=== PATIENT | female | born 1975 | race Caucasian/White ===

== ENCOUNTER 2016-06-10 09:59 | Day surgery (SDC) | payer BC ==
[2016-06-05 09:58] VITALS: BMI 30.2
[~2016-06-10 09:59] MED LIST: LACTATED RINGERS 1,000 ML IV SCH; LIDOCAINE 1% 20 ML VIAL (10MG/ML) FOR IV START INTRADERMA PRN
[2016-06-10 11:08] VITALS: RESP 16; TEMP 98
[2016-06-10] MEDS ORDERED: PROPOFOL 10 MG/ML 20 ML VIAL IV ONE (11:37)
[2016-06-10] MEDS ORDERED: LIDOCAINE 1% INJ 10MG/ML (20 ML MDV) ONE (11:37)
--- NOTE | 2016-06-10 11:42 | P.GSHP ---
History of Present Illness H&P Date: 06/10/16 Chief Complaint: Change in bowel habits Patient here today for colonoscopy. She has had complaints of recent diarrhea and change in bowel habits. She has not had one previously. No family history of inflammatory bowel disease. Past Medical History Past Medical History: No Reported History Additional Past Medical History / Comment(s): HX TACHYCARDIA. HAS BEEN HAVING BOWEL ISSUES RECENTLY PLUS FAMILY HX OF COLORECTAL CANCER History of Any Multi-Drug Resistant Organisms: None Reported Past Surgical History: Adenoidectomy, Cholecystectomy, Orthopedic Surgery, Tonsillectomy Additional Past Surgical History / Comment(s): Left shoulder and right knee surgery. IUD. UPPP FOR SLEEP APNEA. SINUS SX Past Anesthesia/Blood Transfusion Reactions: No Reported Reaction Past Psychological History: No Psychological Hx Reported Smoking Status: Never smoker Past Alcohol Use History: Occasional Past Drug Use History: None Reported - Past Family History Father Family Medical History: Cancer Mother Family Medical History: Cancer Medications and Allergies Home Medications Medication Instructions Recorded Confirmed Type Cyclobenzaprine [Flexeril] 10 mg PO DAILY 06/05/16 06/10/16 History Ibuprofen [Motrin] 800 mg PO Q6HR PRN 06/05/16 06/05/16 History QUEtiapine FUMARATE [SEROquel XR] 150 mg PO HS 06/05/16 06/10/16 History Allergies Allergy/AdvReac Type Severity Reaction Status Date / Time adhesive AdvReac Rash/Hives Verified 06/05/16 09:51 azithromycin AdvReac Rash/Hives Verified 06/05/16 09:51 [From Zithromax Z-Gabriel] Penicillins AdvReac Rash/Hives Verified 06/05/16 09:51 prednisone AdvReac Rash/Hives Verified 06/05/16 09:51 Surgical - Exam Vital Signs Temp Pulse Resp BP Pulse Ox 98 F 119 H 16 149/91 99 06/10/16 11:07 06/10/16 11:07 06/10/16 11:07 06/10/16 11:07 06/10/16 11:07 Physical exam: General: Well-developed, well-nourished HEENT: Normocephalic, sclerae nonicteric Abdomen: Nontender, nondistended Extremities: No edema Neuro: Alert and oriented Assessment and Plan (1) Change in bowel habits Narrative/Plan: Will proceed with colonoscopy at this time. Status: Acute
--- NOTE | 2016-06-10 11:52 | P.PCN ---
Date of Procedure: 06/10/16 Procedure(s) Performed: PREOPERATIVE DIAGNOSIS: Change in bowel habits POSTOPERATIVE DIAGNOSIS: Normal exam PROCEDURE: Colonoscopy ANESTHESIA: MAC SURGEON: Roger Rooney M.D. SPECIMENS: None ENDOSCOPIC PROCEDURE: The patient was placed on the endoscopy table in the left decubitus position. The Olympus colonoscope was inserted into the anus and passed under direct visualization to the base of the cecum. The appendiceal orifice was visualized. From that point the scope was slowly withdrawn inspecting all surfaces carefully. There were no neoplastic inflammatory or polypoid lesions throughout the cecum, ascending, transverse, descending, sigmoid and rectum. There was no diverticulosis noted. Digital rectal examination was normal. The patient was taken to the recovery room in stable condition per anesthesia guidelines. RECOMMENDATIONS: Increase fiber. Follow-up colonoscopy age 50.
[2016-06-10 13:04] VITALS: BP 114/82; PULSE 99
== END 2016-06-10 12:55 | disposition home or self-care (01) ==
LOC: ORWHC2ENDO 09:59
PROVIDERS: ATTEND Surgery
DX: R19.4 Change in bowel habit (principal); Z80.0 Family history of malignant neoplasm of digestive organs; R00.0 Tachycardia, unspecified; Z79.899 Other long term (current) drug therapy; Z88.1 Allergy status to other antibiotic agents; Z88.0 Allergy status to penicillin; Z88.8 Allergy status to other drugs, medicaments and biological substances; Z91.09 Other allergy status, other than to drugs and biological substances
CPT/HCPCS: 81025; 45378; J2001; J2704

== ENCOUNTER → 2016-11-25 | Outpatient (CLI) | payer BC ==
--- NOTE | 2016-11-25 17:24 | CT ---
EXAMINATION TYPE: CT soft tissue neck w con DATE OF EXAM: 11/25/2016 COMPARISON: NONE HISTORY: Patient complains of enlarged precancerous thyroid. CT DLP: 677 mGycm CONTRAST: Patient injected with 100 mL of Omnipaque 300. TECHNIQUE: Axial images at 3 mm thick sections. Reconstructed images in the coronal plane and sagitt al plane are reviewed. FINDINGS: Limited CT sections are obtained the lung apices. The lung apices appear clear. CT neck: There is fullness through the right fossa of Rosenmuller. Direct visualization of the health spa manager ior nasal passages recommended. Parapharyngeal spaces are normal. Order Filler spaces are normal. Parotid glands appear normal and symmetrical. Submandibular glands, are normal. Parapharyngeal spac es are normal. Small left submandibular lymph node is present. Couple of small submental lymph nodes are present. Suspicious adenopathy is not identified. Scattered small bilateral posterior triangle l ymph nodes are present. Largest lymph node on the right measures 0.7 cm. Series 3 image 36. Small jug ulodigastric lymph nodes are present, not enlarged by CT criteria. The hypopharynx appears within normal limits. Vocal cord level appear symmetrical. Subglottic airway appears normal. There is a 0.6 cm hypodensity within the posterior right lobe thyroid. Thyroid appears somewhat heter ogenous. Thyroid ultrasound could be performed. Consider goiter within the differential. Osseous structures are normal. Mucosal thickening is through ethmoid air cells and left maxillary sinus. No suspicious air-fluid lev els are evident. Left mastoid air cells are underpneumatized. The right mastoid air cells appear unre markable. IMPRESSIONS: 1. Scattered small lymphadenopathy discussed above. Suspicious enlarged nodes are not identified. 2. Thyromegaly with a heterogenous appearance. Posterior hypodense nodule is present on the right. Il l-defined mass within the more anterior thyroid is not excluded. Correlation with ultrasound is recom mended.
== END | disposition home or self-care (01) ==
LOC: RADCTMAIN 15:47
PROVIDERS: ATTEND Surgery
DX: E04.1 Nontoxic single thyroid nodule (principal); R59.0 Localized enlarged lymph nodes
CPT/HCPCS: 70491; Q9967

== ENCOUNTER → 2016-12-28 | Outpatient (CLI) | payer BC | END | disposition home or self-care (01) | LOC: LABWHC1 16:00 | PROVIDERS: ATTEND Internal Medicine Endocrinology, Diabetes & Metabolism | DX: C73 Malignant neoplasm of thyroid gland (principal) | CPT/HCPCS: 36415; 84432; 86800 ==

== ENCOUNTER → 2017-09-28 | Outpatient (CLI) | payer BC ==
[2017-09-28 15:16] LABS: Amorphous Sediment,Urine Rare /hpf; Appearance,Urine Clear (Clear); Bilirubin,Urine Negative (Negative); Blood,Urine Trace (Negative); Color,Urine Light Yellow; Glucose,Urine (UA) Negative (Negative); Ketones,Urine Negative (Negative); Leukocyte Esterase,Urine Negative (Negative); Mucus,Urine Rare /hpf; Nitrite,Urine Negative (Negative); Protein,Urine 1+ (Negative); RBC,Urine <1 /hpf (0-5); Specific Gravity,Urine 1.008 (1.001-1.035); Squamous Epithelial Cell,Urine <1 /hpf (0-4); Urobilinogen,Urine <2.0 mg/dL (<2.0); WBC,Urine <1 /hpf (0-5)
[2017-09-28 15:21] LABS: HCT 47.2 % (34.0-46.0); HGB 15.4 gm/dL (11.4-16.0); MCH 29.4 pg (25.0-35.0); MCHC 32.6 g/dL (31.0-37.0); MCV 90.4 fL (80.0-100.0); Mean Platelet Volume 8.7; Platelet Count 138 k/uL (150-450); RBC 5.22 m/uL (3.80-5.40); RDW 14.6 % (11.5-15.5); WBC 8.5 k/uL (3.8-10.6)
[2017-09-28 15:31] LABS: Calcium 9.5 mg/dL (8.4-10.2); Potassium 3.4 mmol/L (3.5-5.1)
== END | disposition home or self-care (01) ==
LOC: LABWHC1 09:35
PROVIDERS: ATTEND Internal Medicine Endocrinology, Diabetes & Metabolism
DX: C73 Malignant neoplasm of thyroid gland (principal); I10 Essential (primary) hypertension
CPT/HCPCS: 36415; 80048; 81001; 84432; 84443; 85027; 86800

== ENCOUNTER → 2017-12-03 | Outpatient (CLI) | payer BC ==
[2017-12-03 08:53] LABS: Basophils # (A) 0.1 k/uL (0-0.2); Basophils % (A) 1 %; Eosinophils # (A) 0.2 k/uL (0-0.7); Eosinophils % (A) 3 %; HCT 43.6 % (34.0-46.0); HGB 14.2 gm/dL (11.4-16.0); Lymphocytes # (A) 2.3 k/uL (1.0-4.8); Lymphocytes % (A) 28 %; MCH 30.6 pg (25.0-35.0); MCHC 32.6 g/dL (31.0-37.0); Mean Platelet Volume 8.7; Monocytes # (A) 0.2 k/uL (0-1.0); Monocytes % (A) 3 %; Neutrophils # (A) 5.3 k/uL (1.3-7.7); Neutrophils % (A) 65 %; Platelet Count 251 k/uL (150-450); RBC 4.63 m/uL (3.80-5.40); RDW 13.4 % (11.5-15.5); WBC 8.2 k/uL (3.8-10.6)
[2017-12-03 17:04] LABS: Thyroid Peroxidase Antibodies 56.6 U/mL (0.0-60.0)
== END | disposition home or self-care (01) ==
LOC: LABWHC1 08:15
PROVIDERS: ATTEND Internal Medicine Sleep Medicine
DX: E03.9 Hypothyroidism, unspecified (principal)
CPT/HCPCS: 36415; 84439; 84443; 85025; 86376; 86800

== ENCOUNTER → 2018-03-11 | Outpatient (CLI) | payer BC ==
[2018-03-11 22:41] LABS: Thyroglobulin 1.01 ng/mL (1.60-59.90)
== END | disposition home or self-care (01) ==
LOC: LABWHC1 13:34
PROVIDERS: ATTEND Internal Medicine Endocrinology, Diabetes & Metabolism
DX: C73 Malignant neoplasm of thyroid gland (principal)
CPT/HCPCS: 36415; 84432; 84443; 86800

== ENCOUNTER → 2018-03-28 | Outpatient (CLI) | payer BC ==
--- NOTE | 2018-03-29 07:51 | US ---
EXAMINATION TYPE: US thyroid st tissue head/neck DATE OF EXAM: 03/28/2018 COMPARISON: US , CT CLINICAL HISTORY: C73 malignant neoplasm of thyroid gland; total thyroidectomy 2016 US: no residual thyroid tissue is observed. Bilateral neck scanned: no evidence of lymphadenopathy. IMPRESSION: Status post total thyroidectomy with no residual thyroid tissue or adenopathy seen in the thyroidecto my bed.
== END ==
LOC: RADUSWWP 16:43
PROVIDERS: ATTEND Internal Medicine Endocrinology, Diabetes & Metabolism
DX: E89.0 Postprocedural hypothyroidism (principal); Z90.89 Acquired absence of other organs
CPT/HCPCS: 76536

== ENCOUNTER → 2018-04-29 | Outpatient (CLI) | payer BC ==
[2018-04-29 15:02] LABS: Basophils # (A) 0.1 k/uL (0-0.2); Basophils % (A) 1 %; Eosinophils # (A) 0.2 k/uL (0-0.7); Eosinophils % (A) 1 %; HCT 50.9 % (34.0-46.0); HGB 16.1 gm/dL (11.4-16.0); Lymphocytes # (A) 2.4 k/uL (1.0-4.8); Lymphocytes % (A) 19 %; MCH 28.5 pg (25.0-35.0); MCHC 31.7 g/dL (31.0-37.0); Mean Platelet Volume 8.5; Monocytes # (A) 0.5 k/uL (0-1.0); Monocytes % (A) 4 %; Neutrophils # (A) 9.3 k/uL (1.3-7.7); Neutrophils % (A) 74 %; Platelet Count 324 k/uL (150-450); RBC 5.66 m/uL (3.80-5.40); RDW 13.9 % (11.5-15.5); WBC 12.7 k/uL (3.8-10.6)
[2018-04-29 19:49] LABS: Albumin 5.1 g/dL (3.80-4.90); Albumin/Globulin Ratio 1.96 (1.60-3.17); Anion Gap 8.8 mmol/L (4.00-12.00); Calcium 9.7 mg/dL (8.7-10.3); Carbon Dioxide 25.2 mmol/L (21.6-31.8); Globulin 2.6 g/dL (1.6-3.3); Potassium 4.5 mmol/L (3.5-5.5); Total Bilirubin 0.4 mg/dL (0.3-1.2); Total Protein 7.7 g/dL (6.2-8.2); Vitamin D 25 Hydroxy 14.2 ng/mL (30.0-100.0)
== END | disposition home or self-care (01) ==
LOC: LABWHC1 14:04
PROVIDERS: ATTEND Nurse Practitioner Acute Care
DX: E55.9 Vitamin D deficiency, unspecified (principal); G35 Multiple sclerosis; R25.1 Tremor, unspecified; R42 Dizziness and giddiness
CPT/HCPCS: 36415; 80053; 82306; 82607; 84207; 85025

== ENCOUNTER → 2020-06-14 | Outpatient (CLI) | payer BC ==
[2020-06-14 13:36] LABS: Albumin 4.1 g/dL (3.5-5.0); Calcium 9.4 mg/dL (8.4-10.2); Potassium 4.5 mmol/L (3.5-5.1); Total Bilirubin 0.3 mg/dL (0.2-1.3); Total Protein 6.7 g/dL (6.3-8.2)
[2020-06-14 13:44] LABS: Prothrombin Time 10.4 sec (9.0-12.0)
--- NOTE | 2020-06-14 14:50 | FL ---
EXAMINATION TYPE: FL barium swallow w video DATE OF EXAM: 06/14/2020 COMPARISON: NONE HISTORY: Dysphagia, multiple sclerosis TECHNIQUE: Fluoroscopy. FINDINGS: Fluoroscopic guidance was provided for the procedure performed in conjunction with the [facility] pathology department. Please see complete report forthcoming from the Speech Pathology departmen t. Various consistencies from thin liquid to solids were administered. Fluoroscopy time 50 seconds. Number of images: 0. No aspiration or penetration was evident. No significant pooling was observed in the vallecula. There was normal propulsion of the bolus. IMPRESSION: 1. Normal modified barium swallow.
== END | disposition home or self-care (01) ==
LOC: RADFLMAIN 11:02
PROVIDERS: ATTEND Psychiatry & Neurology Neurology
DX: R13.10 Dysphagia, unspecified (principal); G35 Multiple sclerosis
CPT/HCPCS: 36415; 74230; 80053; 82306; 82607; 84207; 85610

== ENCOUNTER → 2020-08-27 | Outpatient (CLI) | payer BC ==
[~2020-08-27] MED LIST changes: -LACTATED RINGERS 1,000 ML IV SCH; -LIDOCAINE 1% 20 ML VIAL (10MG/ML) FOR IV START INTRADERMA PRN; +REGADENOSON 0.4 MG/5 ML SYRINGE IV ONE
--- NOTE | 2020-08-27 13:21 | NM ---
EXAMINATION TYPE: NM stress lexiscan cardiolite DATE OF EXAM: 08/27/2020 COMPARISON: NONE HISTORY: R07.9, chest pain TECHNIQUE: After the intravenous administration of 9.5 mCi Tc 99m Sestamibi - Cardiolite resting SPE CT images acquired 45 minutes post injection. The patient received 0.4mg Lexiscan, 24.76 mCi Tc 99m Sestamibi - Stress images obtained 65 minutes p ost injection FINDINGS: Review of stress and rest SPECT images demonstrates mild decreased radio pharmaceutical uptake along the anteroapical left ventricle on stress as compared to rest imaging. Gated analysis shows normal w all motion with an estimated left ventricular ejection fraction of 67 %. IMPRESSION: Findings suggest pharmacologically induced left ventricular myocardial ischemia, consider echocardiog raphic correlation for elevated ejection fraction, Dr. Olmos notified via perfect serve at the time of interpretation.
--- NOTE | 2020-08-27 13:41 | EST ---
EXERCISE STRESS AGE: 45 SEX: F HT: 5'4" WT: 170 lbs. PROTOCOL: Lexiscan STAGE: NA DURATION OF EXERCISE: 5 min. HEART RATE REST: 89 BLOOD PRESSURE REST: 119/64 MAXIMUM HEART RATE ACHIEVED: 113 MAXIMUM BLOOD PRESSURE: 119/73 85% MPHR: 149 100% MPHR: 175 METS: NA INDICATIONS: Chest pain CLINICAL INFORMATION: Baseline EKG shows sinus rhythm, normal axis, normal intervals. Patient was given intravenous Lexiscan as per protocol. Did not have chest pain or diagnostic ST-segment depression. CONCLUSIONS: 1. Negative stress test by EKG criteria. 2. Cardiolite portion of the stress test will be reported separately. MMODL / IJN: [id number] /
== END | disposition home or self-care (01) ==
LOC: RADNMMAIN 08:31
PROVIDERS: ATTEND Family Medicine
DX: R07.9 Chest pain, unspecified (principal)
CPT/HCPCS: 93017; 78452; A9500; J2785

== ENCOUNTER → 2020-09-24 | Outpatient (CLI) | payer BC ==
[2020-09-24 19:10] LABS: HCT 41.4 % (37.2-46.3); HGB 13.3 g/dL (12.0-15.0); MCHC 32.1 g/dL (32.0-37.0); MCV 90.4 fL (80.0-97.0); Mean Platelet Volume 10.7 fL (9.5-12.2); Platelet Count 404 X 10*3/uL (140-440); RBC 4.58 X 10*6/uL (4.10-5.20); RDW 13.8 % (11.5-14.5); WBC 15.79 X 10*3/uL (4.50-10.00)
[2020-09-24 21:15] LABS: African American GFR (CKD) 78.8 (60.0-200.0); Anion Gap 10.5 mmol/L (4.00-12.00); Carbon Dioxide 27.5 mmol/L (21.6-31.8)
== END | disposition home or self-care (01) ==
LOC: LABWHC1 12:00
PROVIDERS: ATTEND Internal Medicine Interventional Cardiology
DX: Z01.812 Encounter for preprocedural laboratory examination (principal); R07.9 Chest pain, unspecified
CPT/HCPCS: 36415; 80051; 82565; 84520; 85027

== ENCOUNTER → 2021-01-03 | Outpatient (CLI) | payer BC ==
--- NOTE | 2021-01-03 13:55 | MR ---
EXAMINATION TYPE: MR knee RT wo con DATE OF EXAM: 01/03/2021 COMPARISON: Outside right knee x-rays December 09, 2020 HISTORY: Right knee pain, locking, and swelling for 4 months. TECHNIQUE: Multiplanar, multisequence imaging of the right knee is performed without IV contrast. FINDINGS: MEDIAL MENISCUS: Anterior and posterior horns are intact without tear. LATERAL MENISCUS: Anterior and posterior horns are intact without tear. CRUCIATE LIGAMENTS: The anterior and posterior cruciate ligaments are intact and unremarkable. COLLATERAL LIGAMENTS: The medial collateral ligament and lateral collateral ligament complex are inta ct and unremarkable. EXTENSOR MECHANISM: Visualized quadriceps and patellar tendons are intact. Some increased signal in t he distal quadriceps tendon without tear. EFFUSION: No significant suprapatellar joint effusion. POPLITEAL CYST: No popliteal/alexander cyst. TRICOMPARTMENT SPACES: [id number] narrowing medial and lateral tibiofemoral compartments. Moder ate to severe narrowing patellofemoral compartment. Mild tricompartment spurring. CARTILAGE: Chondromalacia patella with significant and additional areas full-thickness cartilaginous loss along the posterior patellar pole. Some thinning of articular cartilage medial tibiofemoral comp artment without full-thickness loss. BONE MARROW SIGNAL: No focal abnormal marrow signal is appreciated. OTHER: No additional significant abnormality is appreciated. IMPRESSION: 1. Tendinopathy distal quadriceps tendon. No full-thickness meniscal or ligamentous tear. 2. Fairly moderate tricompartment degenerative changes greatest in patellofemoral compartment somewha t prominent for patient's chronologic age as detailed above.
== END | disposition home or self-care (01) ==
LOC: RADMRIMAIN 12:35
PROVIDERS: ATTEND Orthopaedic Surgery
DX: M17.11 Unilateral primary osteoarthritis, right knee (principal); M67.863 Other specified disorders of tendon, right knee

== ENCOUNTER → 2021-01-10 | Outpatient (CLI) | payer BC ==
[2021-01-10 22:54] LABS: Basophils # (A) 0.06 X 10*3/uL (0.00-0.10); Basophils % (A) 0.8 %; Eosinophils # (A) 0.19 X 10*3/uL (0.04-0.35); Eosinophils % (A) 2.7 %; HCT 41.4 % (37.2-46.3); Lymphocytes # (A) 1.64 X 10*3/uL (0.90-5.00); MCHC 33.8 g/dL (32.0-37.0); MCV 85.9 fL (80.0-97.0); Mean Platelet Volume 11.4 fL (9.5-12.2); Neutrophils # (A) 4.72 X 10*3/uL (1.80-7.70); Neutrophils % (A) 66.2 %; Platelet Count 314 X 10*3/uL (140-440); RBC 4.82 X 10*6/uL (4.10-5.20); RDW 12.2 % (11.5-14.5); WBC 7.13 X 10*3/uL (4.50-10.00)
[2021-01-11 01:38] LABS: Erythrocyte Sedimentation Rate 28 mm/Hr (0-20)
[2021-01-11 03:22] LABS: Uric Acid 6.5 mg/dL (2.9-7.7)
[2021-01-11 04:38] LABS: Rheumatoid Factor, Qnt <10 IU/mL (0-15)
[2021-01-11 11:20] LABS: HLA B27 NEGATIVE
== END | disposition home or self-care (01) ==
LOC: LABWHC1 14:41
PROVIDERS: ATTEND Orthopaedic Surgery
DX: M25.50 Pain in unspecified joint (principal)
CPT/HCPCS: 36415; 84550; 85025; 85652; 86038; 86140; 86431; 86812

== ENCOUNTER → 2021-03-19 | Outpatient (CLI) | payer BC ==
--- NOTE | 2021-03-19 12:59 | CT ---
EXAMINATION TYPE: CT sinus wo con DATE OF EXAM: 03/19/2021 COMPARISON: 09/18/2013 HISTORY: 45-year-old female S02.2XXA, J34.2, Chronic Sinusitis. Recent fall with fracture. CT DLP: 615.9 mGycm Automated exposure control for dose reduction was used. TECHNIQUE: Noncontrast axial views of the paranasal sinuses were obtained. Coronal reconstructions pe rformed. FINDINGS: PARANASAL SINUSES: There is only trace mucosal thickening adjacent to the right maxillary antrum. The left maxillary sin us is asymmetrically smaller. The frontal, ethmoid, and sphenoid sinuses appear well pneumatized. There is no air-fluid level. Reactive vanna- osteogenesis is not seen. There is no destruction of the osseous shah of the paranasal sinuses. THE NASAL CAVITY: The osteomeatal complexes are patent. The nasal septum shows minimal rightward bowing. The imaged brain and orbits are normal in appearance. Mastoid air cells and middle ear cavities are well pneumatized. Reformatted images confirm above findings. IMPRESSION: Only trace mucosal thickening adjacent to the right maxillary antrum. Incidentally, we note an asymme trically smaller left maxillary sinus, likely congenital variation and unchanged from 2013. Minimal rightward nasal septal bowing. Otherwise, no significant paranasal sinus disease seen.
== END | disposition home or self-care (01) ==
LOC: RADCTMAIN 11:24
PROVIDERS: ATTEND Otolaryngology
DX: S02.2XXA Fracture of nasal bones, initial encounter for closed fracture (principal); J34.2 Deviated nasal septum; W19.XXXA Unspecified fall, initial encounter
CPT/HCPCS: 70486; 82310; 83970; 86235

== ENCOUNTER → 2021-05-08 | Outpatient (CLI) | payer BC ==
[2021-05-08 18:02] LABS: HCT 45.2 % (37.2-46.3); HGB 14.1 g/dL (12.0-15.0); MCH 29.4 pg (27.0-32.0); MCHC 31.2 g/dL (32.0-37.0); MCV 94.4 fL (80.0-97.0); Mean Platelet Volume 10.9 fL (9.5-12.2); NRBC Per 100 WBC 0 /100 WBCS (0.0-0.0); Platelet Count 240 X 10*3/uL (140-440); RBC 4.79 X 10*6/uL (4.10-5.20); RDW 13.4 % (11.5-14.5); WBC 6.37 X 10*3/uL (4.50-10.00)
[2021-05-08 18:19] LABS: Chol/HDL Ratio 3.42 Ratio; LDL Cholesterol,Calculated 103.6 mg/dL (0.0-131.0)
[2021-05-08 18:31] LABS: ALT 38 U/L (8-44); AST 29 U/L (13-35); African American GFR (CKD) 70.2 (60.0-200.0); Albumin 4.4 g/dL (3.8-4.9); Alkaline Phosphatase 73 U/L (41-126); Blood Urea Nitrogen 15.4 mg/dL (9.0-27.0); Calcium 8.9 mg/dL (8.7-10.3); Carbon Dioxide 12.9 mmol/L (20.0-27.5); Chloride 106 mmol/L (96-109); Globulin 2.2 g/dL (1.6-3.3); Glucose 133 mg/dL (70-110); Non-African American GFR(CKD) 60.6 (60.0-200.0); Potassium 4.2 mmol/L (3.5-5.5); Sodium 137 mmol/L (135-145); Total Bilirubin <0.15 mg/dL (0.30-1.20); Total Protein 6.6 g/dL (6.2-8.2)
[2021-05-08 19:19] LABS: Estimated Average Glucose UNC
== END | disposition home or self-care (01) ==
LOC: LABWHC1 11:01
PROVIDERS: ATTEND Physician Assistant
DX: Z00.00 Encounter for general adult medical examination without abnormal findings (principal)
CPT/HCPCS: 36415; 80053; 80061; 83036; 84436; 84443; 84480; 85027

== ENCOUNTER → 2021-07-23 | Outpatient (CLI) | payer BC ==
--- NOTE | 2021-07-24 11:22 | NM ---
EXAMINATION TYPE: NM thyroid image w uptake DATE OF EXAM: 07/24/2021 COMPARISON: Ultrasound thyroid 03/28/2018, CT soft tissue neck 11/25/2016 HISTORY: Post thyroidectomy, thyroid cancer TECHNIQUE: Thyroid iodine uptake is calculated and images performed after the oral administration of 309 uCi 1-123 Capsule. FINDINGS: There is no uptake in the expected distribution of the right gland. There are foci of upta ke along what is believed to be cervical chain along the left lateral neck, at least 2 or 3 foci of u ptake, sternal markers also present. The 4 hour iodine uptake is calculated at 2.7% (normal range 8-1 4%). The 24-hour iodine uptake is calculated at 7.2% (normal range 15-35%). IMPRESSION: Post thyroidectomy. Findings suspicious for uptake within cervical nodes on the left
== END | disposition home or self-care (01) ==
LOC: RADNMMAIN 08:42
PROVIDERS: ATTEND Family Medicine
DX: C73 Malignant neoplasm of thyroid gland (principal); Z85.850 Personal history of malignant neoplasm of thyroid
CPT/HCPCS: 78014; A9516

== ENCOUNTER → 2021-09-22 | Outpatient (CLI) | payer BC ==
[2021-09-22 12:21] LABS: HCG,Quantitative Serum <2.4 mIU/mL
== END | disposition home or self-care (01) ==
LOC: LABWHC1 11:16
PROVIDERS: ATTEND Internal Medicine Endocrinology, Diabetes & Metabolism
DX: C73 Malignant neoplasm of thyroid gland (principal)
CPT/HCPCS: 36415; 84432; 84443; 84702; 86800

== ENCOUNTER → 2021-12-25 | Outpatient (CLI) | payer BC | END | disposition home or self-care (01) | LOC: LABWHC1 11:11 | PROVIDERS: ATTEND Internal Medicine Endocrinology, Diabetes & Metabolism | DX: C73 Malignant neoplasm of thyroid gland (principal) | CPT/HCPCS: 36415; 84702 ==

== ENCOUNTER → 2021-12-25 | Day surgery (SDC) | payer BC ==
--- NOTE | 2021-12-25 16:34 | US ---
EXAMINATION TYPE: US thyroid st tissue head/neck DATE OF EXAM: 12/25/2021 COMPARISON: NONE CLINICAL HISTORY: 46-year-old female C73 Malignant neoplasm of thyroid gland. Thyroidectomy TECHNIQUE: Multiple sonographic images of the thyroid bed are obtained. FINDINGS: GLAND SIZE: Right Lobe: Surgically absent Left Lobe: Surgically absent NODULES RIGHT: # of nodules measured on right: 0 LEFT: # of nodules measured on left: 0 ISTHMUS: # of nodules measured in the isthmus: 0 Bilateral neck scanned. There is a benign-appearing, small lymph node along the left side of the neck measuring 8 x 6 x 6 mm. IMPRESSION: Status post thyroidectomy. The thyroid bed remains clear.
--- NOTE | 2021-12-27 09:56 | NM ---
EXAMINATION TYPE: NM Thyroid Iodine Therapy Oral DATE OF EXAM: 12/25/2021 COMPARISON: Uptake and scan 07/23/2021. Additional I-131 whole body scan 09/25/2021 HISTORY: 46-year-old female C73 Malignant neoplasm of thyroid gland. Patient status post thyroidectom y in 2017. Found to have 3 small foci of thyroid cancer in the left lobe. Follow-up I-131 scan with s uspicious findings in the left side of the neck. Referred for ablation therapy. TECHNIQUE: The patient is on thyroid hormone withdrawal. Dose was prescribed (written directive) by an Authorized User in conjunction with treatment request a nd consultation with Dr. Goldman. Risks, benefits, and potential complications of radioactive I-131 therapy were discussed in detail wi th the patient by myself and the nuclear medicine technician. Verbal and written informed consent wer e obtained. Written instructions were given for radiation safety precautions to be observed for 4 day s outpatient. The patient specific exposure calculations were done by RSO to ensure estimated max dose to any indiv idual exposed to the patient was less than 5 mSv. The patient was specifically advised to avoid close contact with children, women, and other members of public. Dose was verified in dose caliber and patient was given oral I-131 pill under the supervision of the nuclear medicine technician. There were no immediate complications. IMPRESSION: Outpatient 98.9 mCi I-131 oral therapy capsule for thyroid cancer, ablation of activity (possible nod es) along the left side of the neck. Patient will return for her posttreatment whole body scan.
== END | disposition home or self-care (01) ==
LOC: RADUSWWP 11:33
PROVIDERS: ATTEND Internal Medicine Endocrinology, Diabetes & Metabolism
DX: C73 Malignant neoplasm of thyroid gland (principal)
CPT/HCPCS: 76536; 79005; A9517

== ENCOUNTER → 2022-01-02 | Outpatient (CLI) | payer BC ==
--- NOTE | 2022-01-04 22:56 | NM ---
EXAMINATION TYPE: NM I-131 Whole Body Imaging DATE OF EXAM: January 02, 2022 COMPARISON: Nuclear medicine thyroid scan September 25 2021. Neck ultrasound December 25, 2021. HISTORY: History of thyroid cancer 2017, suspicious findings left neck. TECHNIQUE: After the intravenous administration of 98.9 mCi iodine 131, whole body imaging in anterio r and posterior projection performed 8 days later.. FINDINGS: Abnormal increased radiotracer uptake left neck suspicious for local neoplastic recurrence at this level remains present and more prominent from prior study in September. Physiologic uptake oral cavity region noted. No additional areas of abnormal radiotracer uptake to suggest distant metastatic disease. IMPRESSION: As above.
== END | disposition home or self-care (01) ==
LOC: RADNMMAIN 08:53 → EDSTATUS 09:00
PROVIDERS: ATTEND Internal Medicine Endocrinology, Diabetes & Metabolism
DX: C73 Malignant neoplasm of thyroid gland (principal)
CPT/HCPCS: 78018

== ENCOUNTER → 2022-01-07 | Outpatient (CLI) | payer BC | END | disposition home or self-care (01) | LOC: LABWHC1 11:39 | PROVIDERS: ATTEND Internal Medicine Endocrinology, Diabetes & Metabolism | DX: C73 Malignant neoplasm of thyroid gland (principal) | CPT/HCPCS: 36415; 84432; 84443; 86800 ==

== ENCOUNTER → 2022-08-24 | Outpatient (CLI) | payer BC ==
--- NOTE | 2022-08-24 16:08 | CA ---
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 Codes: Rhythm: Patient History: Cardiac Medications: Medications in past 24 hours: Contrast: Stress Results Protocol: Hero Total dose(mL): Exercise Duration (min:sec): 6:[address] Depression (mm): Angina Score: Álvarez Score: METS: 7.5 Resting HR: 94 Resting BP: 147 / 108 Peak HR: 157 Peak BP: 189 / 99 Max Predicted HR: 173 91 % Max Predicted HR Target HR: 147 Double Product: 42921 Stress Summary: BP Response: Reason for Termination: Reached target heart rate or work-load Cardiac Symptoms: Dyspnea ECG Analysis Resting ECG: Normal sinus rhythm with nonspecific T-wave flattening on the lateral precordial leads. Heart rate 95 beats a minute Stress ECG: No significant ST or T-wave changes diagnostic for ischemia by ST segment analysis Arrhythmia: No significant arrhythmias or ectopic rhythm noted during the stress test Echo Analysis Resting Echo: Normal global and regional wall motion at rest with a left ventricular ejection fraction of 50- 55 %. Peak Echo Analysis: Normal global and regional wall motion with stress. No evidence of stress induced myocardial ischemia by echo MEASUREMENTS (Male/Female) Normal Values CONCLUSIONS Treadmill echo. Poor exercise tolerance, achieving [7.5] METS and [91]% of max predicted heart rate. Normal hemodynamic response and blood pressure response to exercise Nonischemic ECG response to exercise Normal resting echocardiogram. Normal treadmill stress echocardiogram. Dr Otilio Salgado (Electronically Signed) Final Date: 24 August 2022 16:08
== END | disposition home or self-care (01) ==
LOC: RADNMMAIN 08:56
PROVIDERS: ATTEND Family Medicine
DX: I51.89 Other ill-defined heart diseases (principal); I24.8 Other forms of acute ischemic heart disease; R06.00 Dyspnea, unspecified
CPT/HCPCS: 93351

== ENCOUNTER → 2022-09-25 | Outpatient (CLI) | payer BC ==
[2022-09-25 16:48] LABS: ALT 63 U/L (8-44); AST 35 U/L (13-35); Albumin 4.7 d/dL (3.8-4.9); Albumin/Globulin Ratio 2.14 Ratio (1.60-3.17); Alkaline Phosphatase 85 U/L (41-126); BUN/Creat Ratio 13.45 Ratio (12.00-20.00); Blood Urea Nitrogen 14.8 mg/dL (9.0-27.0); Calcium 10.1 mg/dL (8.7-10.3); Carbon Dioxide 23.6 mmol/L (21.6-31.8); Chloride 102 mmol/L (96-109); Globulin 2.2 d/dL (1.6-3.3); Glucose 111 mg/dL (70-110); Potassium 3.5 mmol/L (3.5-5.5); Sodium 140 mmol/L (135-145); Total Bilirubin 0.3 mg/dL (0.3-1.2); Total Protein 6.9 d/dL (6.2-8.2)
[2022-09-26 04:00] LABS: HCT 43.8 % (37.2-46.3); HGB 14.7 d/dL (12.0-15.0); MCH 30.1 pg (27.0-32.0); MCHC 33.6 d/dL (32.0-37.0); MCV 89.6 FL (80.0-97.0); Mean Platelet Volume 11.6 FL (9.5-12.2); NRBC Per 100 WBC 0 X 10*3/uL (0.00-0.01); Platelet Count 283 X 10*3/uL (140-440); RBC 4.89 X 10*6/uL (4.10-5.20); RDW 12.9 % (11.5-14.5); WBC 8.98 X 10*3/uL (4.50-10.00)
== END | disposition home or self-care (01) ==
LOC: LABWHC1 12:13
PROVIDERS: ATTEND Family Medicine
DX: M27.8 Other specified diseases of jaws (principal)
CPT/HCPCS: 36415; 80053; 83519; 83970; 85027

== ENCOUNTER → 2024-01-19 | Outpatient (CLI) | payer BC ==
--- NOTE | 2024-01-19 14:40 | CT ---
EXAMINATION TYPE: CT chest wo con CT DLP: 329.0 mGycm, Automated exposure control for dose reduction was used. 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 TECHNIQUE: Multiple axial images were obtained through the chest without IV contrast. Lack of IV or o ral contrast limits evaluation of solid and hollow organ viscera. . Coronal and sagittal reformats re viewed. FINDINGS: LUNGS/ PLEURA: No pleural effusion or pneumothorax. Scattered peripheral reticular opacities with bas ilar predominance. Resolution of previously demonstrated groundglass opacities from prior CTA. No foc al consolidation. No honeycombing or bronchiectasis. No suspicious pulmonary nodule or mass. No archi tectural distortion. AIRWAY: Patent and unremarkable.. HEART: Size within normal limits.No pericardial effusion. Small coronary artery calcifications. MEDIASTINUM: No gross evidence of adenopathy. VASCULATURE: No aortic aneurysm. MUSCULOSKELETAL: Mild disc degeneration changes are present throughout the thoracolumbar spine. No ac john osseous abnormality. SOFT TISSUES/LYMPH NODES: Unremarkable. LOWER NECK: No significant findings. UPPER ABDOMEN: Diffuse low-attenuation to the liver parenchyma. Gallbladder is surgical absent. IMPRESSION: 1. Scattered reticular opacities with basilar predominance. Resolution of previously demonstrated hao undglass opacities from prior CTA 11/21/2022. This appearance is nonspecific for interstitial lung di sease with a variety of etiologies. 2. Hepatic steatosis. [facility], , 01/19/2024 2:38 PM
== END | disposition home or self-care (01) ==
LOC: RADCTMAIN 14:01
PROVIDERS: ATTEND Family Medicine
DX: J84.111 Idiopathic interstitial pneumonia, not otherwise specified (principal); K76.0 Fatty (change of) liver, not elsewhere classified; R91.8 Other nonspecific abnormal finding of lung field
CPT/HCPCS: 71250